=== PATIENT | male | born 1975 | race Caucasian/White ===

== ENCOUNTER 2023-03-08 15:58 | Emergency (ER) | payer OTHER ==
[~2023-03-08] VITALS: Ht 177.8 cm; Wt 74.8 kg
[2023-03-08 16:07] VITALS: BP 174/97
[2023-03-08] MEDS ORDERED: ATOR10 PO (16:11)
[2023-03-08] MEDS ORDERED: Cymbalta20 MG PO (16:12)
[2023-03-08] MEDS ORDERED: Prednisone20 MG PO (16:15)
[2023-03-08] MEDS ORDERED: ACYC800 PO (16:15)
== END 2023-03-08 16:20 | disposition home or self-care (01) ==
LOC: ER 15:58
DX: G51.0 Bell's palsy (principal); Z79.52 Long term (current) use of systemic steroids; Z79.899 Other long term (current) drug therapy
CPT/HCPCS: 99283